=== PATIENT | male | born 1995 | race African-American/Black ===

== ENCOUNTER 2017-04-21 04:59 | Emergency (ER) | payer OTHER ==
[~2017-04-21] VITALS: Ht 180.3 cm; Wt 72.3 kg
[2017-04-21] MEDS ORDERED: NORCO 5/3251 TABLET PO (06:17)
[2017-04-21 06:33] VITALS: BP 134/90
== END 2017-04-21 06:34 | disposition home or self-care (01) ==
LOC: EME 04:59
DX: S01.81XA Laceration without foreign body of other part of head, initial encounter (principal); S60.511A Abrasion of right hand, initial encounter; S16.1XXA Strain of muscle, fascia and tendon at neck level, initial encounter; Z23 Encounter for immunization; V48.0XXA Car driver injured in noncollision transport accident in nontraffic accident, initial encounter; Y92.096 Garden or yard of other non-institutional residence as the place of occurrence of the external cause
CPT/HCPCS: 70450; 72125; 99281; 99283